=== PATIENT | female | born 1960 | race Caucasian/White ===

== ENCOUNTER → 2016-12-12 | Outpatient (CLI) | payer BC | END | disposition home or self-care (01) | LOC: PTH.S 09:15 → RAD.S 10:00 | DX: R93.7 Abnormal findings on diagnostic imaging of other parts of musculoskeletal system (principal); G44.89 Other headache syndrome; M54.81 Occipital neuralgia; M47.814 Spondylosis without myelopathy or radiculopathy, thoracic region; D18.09 Hemangioma of other sites; R91.1 Solitary pulmonary nodule ==

== ENCOUNTER → 2016-12-30 | Outpatient (CLI) | payer BC | END | disposition home or self-care (01) | DX: M25.511 Pain in right shoulder (principal) ==

== ENCOUNTER 2017-06-08 01:16 | Emergency (ER) | payer BC ==
--- NOTE | 2017-06-08 19:02 | ER ---
ADMIT: 06/08/2017 RM/LOC: ER [facility] MR#: [id number] [id number] [id number] [place] [address] Emergency Room Report SEX: F AGE: 57 : 1960 DATE: 06/08/2017 The patient is a 57-year-old Monegasque-speaking female, complaining of chest discomfort associated with left arm numbness, tingling, noncompliant with metformin due to diarrhea. Does suffer from peripheral neuropathy, on gabapentin. Examination is remarkable for nontoxic, afebrile female. Exquisitely tender to palpation on anterior chest wall. EKG shows sinus rhythm without ST-T or Q-wave change. Chest x-ray, PA and lateral, negative. Normal CBC, CMP, lactic acid, CRP, CK-MB, and troponin. Negative D-dimer and BNP. UA negative. Lipase normal. Slightly elevated alkaline phosphatase, AST, ALT with normal bilirubin. The patient received GI cocktail, Zofran, Toradol, Protonix with relief of discomfort. Follow up [facility] this week. Andrés Quevedo MD/ kyra JOB #: [id number] CC: Andrés Quevedo MD, Attending Physician Kimberly Ward APRN-MIRTA, Family Physician . [facility]
== END 2017-06-08 03:20 | disposition home or self-care (01) ==
LOC: ER 01:16
DX: R07.89 Other chest pain (principal); K29.70 Gastritis, unspecified, without bleeding; E11.9 Type 2 diabetes mellitus without complications; M19.90 Unspecified osteoarthritis, unspecified site; G62.9 Polyneuropathy, unspecified; Z79.899 Other long term (current) drug therapy